=== PATIENT | female | born 1940 ===

== ENCOUNTER 2016-08-13 10:30 | Outpatient (RCR) | payer OTHER | END 2016-08-22 | disposition home or self-care (01) | LOC: PTY 10:30 | DX: G62.9 Polyneuropathy, unspecified (principal); G63 Polyneuropathy in diseases classified elsewhere ==

== ENCOUNTER 2016-09-15 09:50 | Outpatient (RCR) | payer OTHER | END 2016-09-21 | disposition home or self-care (01) | LOC: PTY 09:50 | DX: G62.9 Polyneuropathy, unspecified (principal) ==

== ENCOUNTER 2016-09-24 09:00 | Outpatient (RCR) | payer OTHER | END 2016-10-22 | disposition home or self-care (01) | LOC: PTY 09:00 | DX: G62.9 Polyneuropathy, unspecified (principal) ==

== ENCOUNTER 2017-05-22 08:15 | Outpatient (RCR) | payer OTHER | END 2017-05-24 | disposition home or self-care (01) | LOC: PTY 08:15 | DX: G24.01 Drug induced subacute dyskinesia (principal) ==

== ENCOUNTER 2017-06-04 08:50 | Outpatient (RCR) | payer OTHER | END 2017-06-24 | disposition home or self-care (01) | LOC: PTY 08:50 | DX: G24.01 Drug induced subacute dyskinesia (principal) ==

== ENCOUNTER 2017-06-30 09:45 | Outpatient (RCR) | payer OTHER | END 2017-07-22 | disposition home or self-care (01) | LOC: PTY 09:45 | DX: G24.01 Drug induced subacute dyskinesia (principal) ==